=== PATIENT | female | born 1985 | race Native Hawaiian/Other Pacific Islander ===

== ENCOUNTER 2019-12-13 09:43 | Outpatient (CLI) | payer BC, OTHER ==
[~2019-12-13 09:43] MED LIST: ALPR0.5T24 PO; METO50TA27 PO
== END 2019-12-13 21:48 | disposition home or self-care (01) ==
LOC: LAB 09:43
DX: Z20.828 Contact with and (suspected) exposure to other viral communicable diseases (principal)
CPT/HCPCS: 87635; G2023; U0003